=== PATIENT | female | born 1960 | race Hispanic/Latino ===

== ENCOUNTER → 2018-06-30 | Outpatient (CLI) | payer OTHER ==
[~2018-06-30] MED LIST: ATENOLOL PO; CELEBREX PO; NIFEDIPINE ER30 MG PO; OMEPRAZOLE PO; SERTRALINE PO
--- NOTE | 2018-06-30 13:17 | Diagnostic Imaging Report ---
FLUOROSCOPIC BARIUM SWALLOW AND UPPER GI CANVAS WORKER APPRENTICE(S): Enrique Lucio MD Comparison: None. Procedure: Barium swallow and upper GI fluoroscopic images obtained after administration of crystals and thin and thick barium. DISCUSSION: SPRING FORGER: The bowel gas pattern is non-obstructive. ESOPHAGUS: Normal mucosal appearance and motility. GE junction is unremarkable. GASTROESOPHAGEAL REFLUX: Moderate inducible gastroesophageal reflux with water siphon test to the level of the aortic arch. STOMACH: Unremarkable mucosal pattern. SMALL BOWEL: Bulb and sweep are normal. Duodenal-jejunal junction is in the normal expected position Radiation Dose: Fluoroscopy time: 1.5 minutes Total dose mGy: 43.03 mGy IMPRESSION: Moderate inducible gastroesophageal reflux. Signed by: Dr. Enrique Lucio MD on 06/30/2018 1:14 PM
== END ==
LOC: DX 09:19
PROVIDERS: ATTEND Family Medicine
DX: K21.9 Gastro-esophageal reflux disease without esophagitis (principal)
CPT/HCPCS: 74246